=== PATIENT | male | born 1955 | race Caucasian/White ===

== ENCOUNTER → 2017-03-25 | Outpatient (CLI) | payer OTHER ==
[~2017-03-25] MED LIST: ASPEC81 PO; ATOR-24 PO; CLC6 PO; CZR50 PO; METO-217 PO; NTRSLP4 SL; [UNRECOGNIZED DRUG - CODE] PO
[2017-03-25 17:27] LABS: RATIO 4.3 mcg/mg (0-30.0)
[2017-03-26 06:40] LABS: ESTIMATED AVERAGE GLUCOSE 157 mg/dl; HA1C FLAG Normal (Normal)
== END | disposition home or self-care (01) ==
LOC: C.LAB1850 15:57
PROVIDERS: ATTEND Physician Assistant
DX: E11.9 Type 2 diabetes mellitus without complications (principal)

== ENCOUNTER → 2017-09-25 | Outpatient (CLI) | payer OTHER ==
[2017-09-25 10:49] LABS: ESTIMATED AVERAGE GLUCOSE 212 mg/dl; HA1C FLAG Normal (Normal)
[2017-09-25 11:13] LABS: ALT/SGPT 43 U/L (12-78); AST/SGOT 23 U/L (15-37); BLOOD UREA NITROGEN 19 mg/dl (7-18); BUN/CREATININE RATIO 19.5 (10-20); CALCIUM 9.2 mg/dl (8.5-10.1); CARBON DIOXIDE 26 mmol/L (21-32); CHLORIDE 103 mmol/L (98-107); CREATININE 0.96 mg/dl (0.60-1.40); GLUCOSE 201 mg/dl (70-99); POTASSIUM 4.1 mmol/L (3.5-5.1); SODIUM 134 mmol/L (136-145)
[2017-09-25 11:33] LABS: ALKALINE PHOSPHATASE 82 U/L (45-117); CHOLESTEROL 120 mg/dl (0-200); CHOLESTEROL/HDL RATIO 2.5; HDL CHOLESTEROL 48 mg/dl; LDL CHOLESTEROL CALCULATED 50 mg/dl; TRIGLYCERIDES 108 mg/dl (0-150); VERY LOW DENSITY LIPOPROT CALC 22 mg/dl
[2017-09-25 11:49] LABS: RATIO 6.1 mcg/mg (0-30.0)
== END | disposition home or self-care (01) ==
LOC: C.LAB1850 10:03
PROVIDERS: ATTEND Physician Assistant
DX: E11.9 Type 2 diabetes mellitus without complications (principal)